=== PATIENT | female | born 1985 | race Caucasian/White ===

== ENCOUNTER 2019-01-18 20:01 | Emergency (ER) | payer MEDICAID ==
[2019-01-18 20:43] VITALS: BP 110/67
--- NOTE | 2019-01-18 20:44 | UC ---
Complaint Female HPI - HPI Summary HPI Summary: Patient is a 34yo female presenting with c/o "possible BV and UTI symptoms." Patient states she had BV one month ago and was treated, but continued to have sex while receiving treatment. Patient states her symptoms did resolve but they have returned for the past few days. Patient notes malodorous, yellow, creamy discharge. Notes dyspareunia and mild bleeding with sex and states that this is exactly what happened when she had BV last time. Denies abdominal pain. Patient states she attempted vinegar pH douche yesterday which she believes made her symptoms worse. Denies itching. Denies vaginal or vulvar pain or tenderness. Patient believes she has the beginnings of a UTI as well. Notes painful urination and urgency to go since this morning. Patient states she's had UTIs in the past and this feels like one. Denies hematuria. Denies flank pain. Continues to deny abdominal pain. Denies fever and chills. Denies nausea or vomiting. Patient states she would also like to be tested for STI's but does not want any blood work done because she had that done last month when she was tested for BV. Patient also notes that she could be and would like a test as well. LMP 12/28/18 Patient also adds L shoulder pain x3 weeks after she states she fell on it. States pain is "sharp like electricity only when lifting arm up above head." Denies pain at rest. Patient states she "doesn't want it worked up because she needs to leave" but "would like a referral." - History Of Current Complaint Chief Complaint: UCGU Stated Complaint: PERSONAL Time Seen by Provider: 01/18/19 20:22 Hx Obtained From: Patient Hx Last Menstrual Period: 12/28/18 Onset/Duration: Gradual Onset, Lasting Days Severity Currently: None Pain Intensity: 7 - Allergies/Home Medications Allergies/Adverse Reactions: Allergies Allergy/AdvReac Type Severity Reaction Status Date / Time Penicillins Allergy Shortness Verified 01/18/19 20:43 of Breath Home Medications: Home Medications Control Pill 1 tab PO DAILY 01/18/19 [History Confirmed 01/18/19] PMH/Surg Hx/FS Hx/Imm Hx Previously Healthy: Yes GI/ History: Kidney Stones - Surgical History Surgical History: Yes Surgery Procedure, Year, and Place: appy - Family History Known Family History: Positive: Non-Contributory - Social History Alcohol Use: None Substance Use Type: None Smoking Status (MU): Heavy Every Day Tobacco Smoker Review of Systems All Other Systems Reviewed And Are Negative: Yes Constitutional: Positive: Negative. Negative: Fever, Chills ENT: Positive: Negative Respiratory: Positive: Negative Cardiovascular: Positive: Negative Gastrointestinal: Positive: Negative. Negative: Abdominal Pain, Vomiting, Diarrhea, Nausea Genitourinary: Positive: Dysuria, Frequency, Urgency, Vaginal/Penile Burning - with urination, Vaginal/Penile Discharge - "yellow creamy smelly", Vaginal/ Penile Tenderness - during intercourse, Abnormal Bleeding - after intercourse. Negative: Hematuria, Vaginal/Penile Itching, Ulceration/Lesion Physical Exam Triage Information Reviewed: Yes Appearance: Well-Appearing, No Pain Distress, Well-Nourished Vital Signs: Initial Vital Signs Temp 98.3 F 01/18/19 20:27 Pulse 51 01/18/19 20:27 Resp 18 01/18/19 20:27 BP 110/67 01/18/19 20:27 Pulse Ox 99 01/18/19 20:27 Lab Results 01/18/19 01/18/19 Range/Units 20:50 20:52 POC Urine Color Yellow POC Urine Clarity Clear POC Urine pH 5.5 (5-9) POC Ur Specif [place] >= 1.030 (1.010-1.030) POC Urine Protein Negative (Negative) POC Ur Glucose (UA) Negative (Negative) POC Urine Ketones Negative (Negative) POC Urine Blood Trace-intact (Negative) POC Urine Nitrite Negative (Negative) POC Urine Bilirubin Negative (Negative) POC Urine Urobilinogen 0.2 (Negative) POC U Leukocyte Esteras Trace (Negative) POC Ur Test Negative (Negative) Vital Signs Reviewed: Yes Eyes: Positive: Conjunctiva Clear ENT: Positive: Hearing grossly normal Neck: Positive: Supple Respiratory: Positive: No respiratory distress Musculoskeletal: Positive: ROM Limited @ - L arm abduction d/t pain, Other: - no tenderness to palpation of L shoulder/arm Neurological: Positive: Alert Psychological: Positive: Age Appropriate Behavior Complaint Female Dx - Course Course Of Treatment: Patient declined pelvic exam "stating she just had one last month and does not have time tonight." Patient received testing for yeast, trichomonas, BV, and G/ C. Patient UA positive for trace WBCs and blood. She noted urinary frequency, urgency, and burning, so I treated with Macrobid for UTI symptoms. UA was sent for culture as well. I also treated with flagyl for possible BV infection based on history and symptoms. Patient received first doses of both medications here in the urgent care. Instructed to follow up with [facility] or physician referral if symptoms persist. Patient voiced understanding and agreed with treatment plan. I also referred patient to orthopedics, per her request, for further evaluation of L shoulder pain. - Differential Dx/Diagnosis Differential Diagnosis/HQI/PQRI: Sexually Transmitted Disease, Urinary Tract Infection Provider Diagnosis: UTI (urinary tract infection), BV (bacterial vaginosis) Discharge ED - Sign-Out/Discharge Documenting (check all that apply): Patient Departure All imaging exams completed and their final reports reviewed: No Studies - Discharge Plan Condition: Stable Disposition: HOME Prescriptions: metroNIDAZOLE [Flagyl] 500 mg PO BID #13 tablet Nitrofurantoin Monohyd/M-Cryst [Macrobid 100 mg Capsule] 100 mg PO BID #9 cap Patient Education Materials: Bacterial Vaginosis (ED), Sexually Transmitted Diseases (ED), Urinary Tract Infection in Women (ED) Referrals: [facility] [Outside] [facility] [Outside] - If Needed [facility] [Outside] - If Needed [facility] [Outside] - If Needed Additional Instructions: Take Flagyl as prescribed for treatment of BV. Take Macrobid as prescribed for treatment of UTI symptoms. You received the first dose of each tonight. Do not consume alcohol while taking this medication, as it will cause severe stomach upset. Your test was negative. You have received testing for BV, yeast, trichomonas, gonorrhea, and chlamydia. You will be notified of any results that warrant a change in treatment. It is recommended that you use a condom for all sexual encounters. Follow up with the [facility] or physician referral listed below if symptoms persist or worsen. Follow up with the orthopedics referral listed below if your shoulder pain persists or worsens. - Billing Disposition and Condition Condition: STABLE Disposition: Home
[2019-01-18] MEDS ORDERED: Nitrofurantoin Macrocrystals* 50 MG CAP PO ONE (21:03)
[2019-01-18] MEDS ORDERED: metroNIDAZOLE TAB* 250 MG PO ONE (21:05)
--- NOTE | 2019-01-20 07:45 | UC ---
- Progress Note Progress Note: Reviewed visit notes from 01/18/19. Treated with metronidazole for suspected BV, and Affirm is positive for Gardnerella. Urine culture results still pending--treated with macrobid. No change based on this report. Course/Dx - Diagnoses Provider Diagnoses: UTI (urinary tract infection), BV (bacterial vaginosis) Discharge ED - Sign-Out/Discharge Documenting (check all that apply): Post-Discharge Follow Up All imaging exams completed and their final reports reviewed: No Studies - Discharge Plan Condition: Stable Disposition: HOME Prescriptions: metroNIDAZOLE [Flagyl] 500 mg PO BID #13 tablet Nitrofurantoin Monohyd/M-Cryst [Macrobid 100 mg Capsule] 100 mg PO BID #9 cap Patient Education Materials: Bacterial Vaginosis (ED), Sexually Transmitted Diseases (ED), Urinary Tract Infection in Women (ED) Referrals: [facility] [Outside] - If Needed [facility] [Outside] - If Needed [facility] [Outside] - If Needed [facility] [Outside] Additional Instructions: Take Flagyl as prescribed for treatment of BV. Take Macrobid as prescribed for treatment of UTI symptoms. You received the first dose of each tonight. Do not consume alcohol while taking this medication, as it will cause severe stomach upset. Your test was negative. You have received testing for BV, yeast, trichomonas, gonorrhea, and chlamydia. You will be notified of any results that warrant a change in treatment. It is recommended that you use a condom for all sexual encounters. Follow up with the [facility] or physician referral listed below if symptoms persist or worsen. Follow up with the orthopedics referral listed below if your shoulder pain persists or worsens. - Billing Disposition and Condition Condition: STABLE Disposition: Home
[2019-01-20 12:53] LABS: Chlamydia trachomatis NAA Negative (Negative); Neisseria gonorrhoeae (GC) NAA Negative (Negative)
--- NOTE | 2019-01-21 10:23 | UC ---
- Progress Note Progress Note: urine final - no growth pt on macrobid - please call - can d/c abx GC/CH neg - please advise pt Course/Dx - Diagnoses Provider Diagnoses: UTI (urinary tract infection), BV (bacterial vaginosis) Discharge ED - Sign-Out/Discharge Documenting (check all that apply): Post-Discharge Follow Up All imaging exams completed and their final reports reviewed: No Studies - Discharge Plan Condition: Stable Disposition: HOME Prescriptions: metroNIDAZOLE [Flagyl] 500 mg PO BID #13 tablet Nitrofurantoin Monohyd/M-Cryst [Macrobid 100 mg Capsule] 100 mg PO BID #9 cap Patient Education Materials: Bacterial Vaginosis (ED), Sexually Transmitted Diseases (ED), Urinary Tract Infection in Women (ED) Referrals: [facility] [Outside] - If Needed [facility] [Outside] - If Needed [facility] [Outside] - If Needed [facility] [Outside] Additional Instructions: Take Flagyl as prescribed for treatment of BV. Take Macrobid as prescribed for treatment of UTI symptoms. You received the first dose of each tonight. Do not consume alcohol while taking this medication, as it will cause severe stomach upset. Your test was negative. You have received testing for BV, yeast, trichomonas, gonorrhea, and chlamydia. You will be notified of any results that warrant a change in treatment. It is recommended that you use a condom for all sexual encounters. Follow up with the [facility] clinic or physician referral listed below if symptoms persist or worsen. Follow up with the orthopedics referral listed below if your shoulder pain persists or worsens. - Billing Disposition and Condition Condition: STABLE Disposition: Home
== END 2019-01-18 21:25 | disposition home or self-care (01) ==
LOC: UCCORT 20:01
DX: N39.0 Urinary tract infection, site not specified (principal); N76.0 Acute vaginitis; B96.89 Other specified bacterial agents as the cause of diseases classified elsewhere; F17.200 Nicotine dependence, unspecified, uncomplicated; Z88.0 Allergy status to penicillin
CPT/HCPCS: 81003; 84702; 87086; 87480; 87491; 87510; 87591; 87660; 99202; A9270-GY; G0463

== ENCOUNTER 2019-02-13 18:46 | Emergency (ER) | payer MEDICAID ==
[2019-02-13 19:33] VITALS: BP 119/66
--- NOTE | 2019-02-13 20:15 | UC ---
Complaint Female HPI - HPI Summary HPI Summary: 34-year-old female presents with concerns for recurrence of bacterial vaginosis. Patient reports eat creamy, malodorous vaginal discharge for the past 4-5 days. States she has history of recurrent BV. She was seen at this facility on 01/18/2019 for similar symptoms and was treated for BV with a 7 day course of a Flagyl as well as started on Macrobid for a possible UTI. At that visit she had negative testing for gonorrhea, chlamydia, Trichomonas, and Kristie. She was positive for Gardnerella. Urine culture was negative. States she continued to be sexually active during treatment. Does not use condoms. Denies fever, chills, abdominal pain, back or flank pain, pelvic pain, nausea, vomiting, dysuria, frequency, urgency, hematuria, vaginal itching, abnormal vaginal bleeding, or dyspareunia. - History Of Current Complaint Chief Complaint: UCGU Stated Complaint: PERSONAL Hx Obtained From: Patient Hx Last Menstrual Period: 01/23/19 Pain Intensity: 0 - Allergies/Home Medications Allergies/Adverse Reactions: Allergies Allergy/AdvReac Type Severity Reaction Status Date / Time Penicillins Allergy Shortness Verified 02/13/19 19:33 of Breath PMH/Surg Hx/FS Hx/Imm Hx Previously Healthy: Yes - Denies significant PMH - Surgical History Surgical History: Yes Surgery Procedure, Year, and Place: appy - Family History Known Family History: Positive: Non-Contributory - Social History Occupation: Employed Full-time Lives: Alone Alcohol Use: None Substance Use Type: None Smoking Status (MU): Heavy Every Day Tobacco Smoker Type: Cigarettes Amount Used/How Often: 1 ppd Review of Systems All Other Systems Reviewed And Are Negative: Yes Constitutional: Negative: Fever, Chills Respiratory: Positive: Negative Cardiovascular: Positive: Negative Gastrointestinal: Negative: Abdominal Pain, Vomiting, Nausea Genitourinary: Positive: Vaginal/Penile Discharge. Negative: Dysuria, Hematuria , Frequency, Urgency, Vaginal/Penile Itching, Vaginal/Penile Pain, Ulceration/ Lesion, Abnormal Bleeding Musculoskeletal: Positive: Negative Neurological: Positive: Negative Is Patient Immunocompromised?: No Physical Exam - Summary Physical Exam Summary: GENERAL APPEARANCE: Well developed, well nourished, alert and cooperative, and appears to be in no acute distress. CARDIAC: Normal S1 and S2. No S3, S4 or murmurs. Rhythm is regular. There is no peripheral edema, cyanosis or pallor. Extremities are warm and well perfused. Capillary refill is less than 2 seconds. Peripheral pulses intact. LUNGS: Clear to auscultation without rales, rhonchi, wheezing or diminished breath sounds. ABDOMEN: Positive bowel sounds. Soft, nondistended, nontender. No guarding or rebound. No masses or hepatosplenomegally. No CVA tenderness. GENITOURINARY: Patient declined pelvic exam MUSKULOSKELETAL: ROM intact to all extremities. No joint erythema or tenderness. Normal muscular development. Normal gait. SKIN: Skin normal color, texture and turgor with no lesions or eruptions. Triage Information Reviewed: Yes Vital Signs: Initial Vital Signs Temp 97.4 F 02/13/19 19:28 Pulse 71 02/13/19 19:28 Resp 15 02/13/19 19:28 BP 119/66 02/13/19 19:28 Pulse Ox 100 02/13/19 19:28 Vital Signs Reviewed: Yes Complaint Female Dx - Course Course Of Treatment: 34-year-old female presents with concerns for recurrence of bacterial vaginosis. Patient reports eat creamy, malodorous vaginal discharge for the past 4-5 days. States she has history of recurrent BV. She was seen at this facility on 01/18/2019 for similar symptoms and was treated for BV with a 7 day course of a Flagyl as well as started on Macrobid for a possible UTI. At that visit she had negative testing for gonorrhea, chlamydia, Trichomonas, and Kristie. She was positive for Gardnerella. Urine culture was negative. States she continued to be sexually active during treatment. Does not use condoms. Denies fever, chills, abdominal pain, back or flank pain, pelvic pain, nausea, vomiting, dysuria, frequency, urgency, hematuria, vaginal itching, abnormal vaginal bleeding, or dyspareunia. Afebrile. Vital signs stable. Patient declined pelvic exam, STI, and Affirm testing at this time since she had just been tested recently. Remainder of her exam was unremarkable. Patient states that she is typically treated for her BV with a course of Flagyl and expresses frustration that she continues to have recurrence therefore we will try treating her with clindamycin ovules one suppository intravaginally at bedtime 3 days. She is to [facility] in 5-7 days if symptoms are not improving. Anticipatory guidance and warning symptoms were reviewed with the patient. Verbalizes understanding and agrees with plan of care. - Differential Dx/Diagnosis Differential Diagnosis/HQI/PQRI: Cervicitis, Pelvic Inflammatory Disease, , Sexually Transmitted Disease, Urinary Tract Infection Provider Diagnosis: Bacterial vaginosis Discharge ED - Sign-Out/Discharge Documenting (check all that apply): Patient Departure All imaging exams completed and their final reports reviewed: No Studies - Discharge Plan Condition: Stable Disposition: HOME Prescriptions: Clindamycin SUPP (NF) [Cleocin 100 MG SUPP (NF)] 100 mg VAGINAL BEDTIME #3 sup Patient Education Materials: Bacterial Vaginosis (ED) Referrals: No Primary Care Phys,NOPCP [Primary Care Provider] - [facility] [Outside] Additional Instructions: The urine test performed in the clinic today was negative. You declined testing for sexually transmitted infections, vaginal yeast infection, and bacterial vaginosis today but based on the reoccurrence of your symptoms we will try treating you with a different medication. Use clindamycin ovules. Insert 1 suppository intravaginally at bedtime for 3 days. You should abstain from sexual intercourse during treatment and it is recommended that you consistently use condoms to help prevent reinfection. Follow-up the [facility] in 5-7 days if symptoms are not improving. Seek immediate medical attention in the emergency room if he develops a fever greater than 100.5 F, have severe abdominal or pelvic pain, persistent vomiting , abnormal vaginal bleeding, or any worsening of symptoms. - Billing Disposition and Condition Condition: STABLE Disposition: Home
== END 2019-02-13 20:37 | disposition home or self-care (01) ==
LOC: UCCORT 18:46
DX: N76.0 Acute vaginitis (principal); F17.210 Nicotine dependence, cigarettes, uncomplicated; Z88.0 Allergy status to penicillin
CPT/HCPCS: 84702; 99212; G0463

== ENCOUNTER 2019-03-11 19:44 | Emergency (ER) | payer MEDICAID ==
[2019-03-11 19:58] VITALS: BP 114/66
--- NOTE | 2019-03-11 20:02 | UC ---
Complaint Female HPI - HPI Summary HPI Summary: pt was treated after being treated for bv. pt was also given an abx for a possible uti. pt was called and told that she did have +bv but did not have a uti. pt stopped abx. pt states she feels that she began to have uti symptoms for the past 1 1/2 weeks. pt states she has had temp max 102 and has pain to her mid back. - History Of Current Complaint Chief Complaint: UCGU Stated Complaint: URINARY Time Seen by Provider: 03/11/19 19:57 Hx Obtained From: Patient Hx Last Menstrual Period: 01/23/19 Pain Intensity: 8 Pain Scale Used: 0-10 Numeric - Allergies/Home Medications Allergies/Adverse Reactions: Allergies Allergy/AdvReac Type Severity Reaction Status Date / Time Penicillins Allergy Shortness Verified 03/11/19 19:58 of Breath Home Medications: Home Medications Ibuprofen 400 mg PO ONCE 03/11/19 [History Confirmed 03/11/19] Naproxen Sodium [Aleve] 440 mg PO ONCE 03/11/19 [History Confirmed 03/11/19] PMH/Surg Hx/FS Hx/Imm Hx - Additional Past Medical History Additional PMH: no chronic issues Previously Healthy: Yes - Surgical History Surgical History: Yes Surgery Procedure, Year, and Place: appy - Family History Known Family History: Positive: Non-Contributory - Social History Alcohol Use: None Substance Use Type: None Smoking Status (MU): Heavy Every Day Tobacco Smoker Type: Cigarettes Amount Used/How Often: 1 ppd Review of Systems All Other Systems Reviewed And Are Negative: Yes Constitutional: Negative: Fever, Chills, Fatigue Skin: Negative: Rash Respiratory: Positive: Negative Cardiovascular: Positive: Negative Genitourinary: Positive: Dysuria, Urgency Musculoskeletal: Positive: Other: - back pain Physical Exam Triage Information Reviewed: Yes Appearance: Well-Appearing Vital Signs: Initial Vital Signs Temp 99.9 F 03/11/19 19:52 Pulse 109 03/11/19 19:52 Resp 18 03/11/19 19:52 BP 114/66 03/11/19 19:52 Pulse Ox 99 03/11/19 19:52 Vital Signs Reviewed: Yes Eyes: Positive: Conjunctiva Clear Respiratory: Positive: Lungs clear, No respiratory distress Cardiovascular Exam: Normal Abdomen Description: Negative: CVA Tenderness (R), CVA Tenderness (L) Complaint Female Dx - Course Course Of Treatment: UTI symptoms and willing to tx empirically today. Sending her urine for both cx and chlam/thomas swab. we discussed antibx and how to use. at this point no signs of pyleonephritis and vitals good. - Differential Dx/Diagnosis Differential Diagnosis/HQI/PQRI: Urinary Tract Infection, Other Provider Diagnosis: UTI (urinary tract infection) Discharge ED - Sign-Out/Discharge Documenting (check all that apply): Patient Departure All imaging exams completed and their final reports reviewed: No Studies - Discharge Plan Condition: Good Disposition: HOME Prescriptions: Nitrofurantoin Macrocrystals* [Macrodantin 100 mg*] 100 mg PO BID 7 Days #13 cap Patient Education Materials: Dysuria (ED) Referrals: No Primary Care Phys,NOPCP [Primary Care Provider] - Additional Instructions: if worsening please see [facility] - Billing Disposition and Condition Condition: GOOD Disposition: Home
[2019-03-11] MEDS ORDERED: Nitrofurantoin Macrocrystals* 50 MG CAP PO ONE (20:11)
[2019-03-11] MEDS ORDERED: Phenazopyridine TAB* 100 MG PO ONE (20:19)
[2019-03-13 14:05] LABS: Chlamydia trachomatis NAA Negative (Negative); Neisseria gonorrhoeae (GC) NAA Negative (Negative)
== END 2019-03-11 20:26 | disposition home or self-care (01) ==
LOC: UCCORT 19:44
DX: N39.0 Urinary tract infection, site not specified (principal); R53.83 Other fatigue; F17.210 Nicotine dependence, cigarettes, uncomplicated; Z88.0 Allergy status to penicillin
CPT/HCPCS: 81003; 87086; 87491; 87591; 99212; A9270-GY; G0463